=== PATIENT | female | born 1950 | race Caucasian/White ===

== ENCOUNTER → 2019-01-08 | Outpatient (CLI) | payer MEDICARE, OTHER ==
[~2019-01-08] MED LIST: ASPI-1441 PO; LOR5/325 PO
--- NOTE | 2019-01-08 12:49 | RADIOLOGY IMAGING REPORT ---
FAC[place] [facility] [place]IENT NAME: TERA JOHANSEN : [id number] MR: [id number] V: [id number] EXAM DATE: [id number] ORDERING PHYSICIAN: ZACH DAI TECHNOLOGIST: Gail Aguilar PROCEDURE:BILATERAL DIGITAL SCREENING MAMMOGRAM WITH CAD ASSISTED INTERPRETATION & 3D TOMOSYNTHESIS COMPARISON:Prior mammograms 12/28/2016 back to 08/05/2012. INDICATIONS:SCREENING Family History: None Personal History: Benign Biopsy 17 years ago FINDINGS: Scattered fibroglandular tissue. There are no mass lesions, architectural distortions, or any clustering of suspicious microcalcifications. DIAGNOSTIC CATEGORY 1--NEGATIVE. RECOMMENDATIONS: ROUTINE MAMMOGRAM AND CLINICAL EVALUATION. IMPRESSION: BIRADS 1: Negative. Dictated by: Jairo Mccormack M.D. on 01/08/2019 at 10:24 Transcribed by: STACY on 01/08/2019 at 11:15 Approved by: Jairo Mccormack M.D. on 01/08/2019 at 12:48 [facility]
== END ==
LOC: MAMO 01:29
PROVIDERS: ATTEND Physician Assistant
DX: Z12.31 Encounter for screening mammogram for malignant neoplasm of breast (principal)
CPT/HCPCS: 77063; 77067

== ENCOUNTER 2019-03-24 09:45 | Emergency (ER) | payer MEDICARE, OTHER ==
--- NOTE | 2019-03-24 09:49 | ER Report ---
History and Physical Time Seen By MD: 09:49 HPI/ROS CHIEF COMPLAINT: Right lower extremity swelling and pain HISTORY OF PRESENT ILLNESS: Patient is a 68-year-old female here with complaints of right lower extremity proximal pain status post hip replacement 1 month prior, cramping sensation in the right lower calf and leg swelling. Patient is neurovascularly intact at time of evaluation. Patient was concerned that she may have a clot prompting evaluation. Denies chest pain, shortness breath, fevers or chills. REVIEW OF SYSTEMS: Constitutional: No fever, no chills. Eyes: No discharge. ENT: No sore throat. Cardiovascular: No chest pain, no palpitations. Respiratory: No cough, no shortness of breath. Gastrointestinal: No abdominal pain, no vomiting. Genitourinary: No hematuria. Musculoskeletal: + Lower extremity proximal pain and cramping in the calf Skin: No rashes. Neurological: Neurovascular exam intact in the distal extremity Allergies: Coded Allergies: Sulfa (Sulfonamide Antibiotics) (Verified Allergy, Severe, HIVES, 03/24/19) codeine (Verified Allergy, Severe, N/V, DEHYDRATION, 03/24/19) erythromycin base (Verified Adverse Reaction, Severe, DIARRHEA, 03/24/19) Home Meds Reported Medications Oxycodone/Acetaminophen (OXYCODONE/ACETAMINOPHEN 5MG/325 MG) 5 Mg/325 Mg Tab 03/24/19 Olmesartan Medoxomil (BENICAR) 5 Mg Tablet, 10 MG PO BID 03/24/19 Aspirin (Aspirin Ec) 81 Mg Tablet.dr, 81 MG PO DAILY, 0 Refills 12/21/08 Discontinued Reported Medications Acetaminophen/Hydrocodone (Lortab 5/325 Mg) 5 Mg/325 Mg Tab, 1 - 2 EA PO Q4-6H PRN, #30 0 Refills 12/21/08 Hx Substance Use Disorder: No Hx Alcohol Use: No Constitutional Vital Sign - Last 24 Hours 03/24/19 03/24/19 03/24/19 03/24/19 09:52 10:00 10:15 10:30 Temp 99.0 Pulse 78 83 81 Resp 20 10 12 B/P (MAP) 149/90 133/75 (94) 126/58 (80) Pulse Ox 93 91 90 03/24/19 03/24/19 03/24/19 03/24/19 10:45 10:50 11:00 11:05 Pulse 65 72 70 Resp 9 37 12 B/P (MAP) 139/79 (99) Pulse Ox 91 90 91 03/24/19 03/24/19 03/24/19 03/24/19 11:30 11:35 11:50 12:00 Pulse 73 72 Resp 16 15 B/P (MAP) 128/85 (99) 129/68 (88) Pulse Ox 91 90 03/24/19 03/24/19 03/24/19 03/24/19 12:05 12:20 12:25 12:30 Pulse 67 66 69 Resp 15 13 18 B/P (MAP) 131/78 (95) Pulse Ox 89 95 93 03/24/19 03/24/19 03/24/19 03/24/19 12:40 12:55 13:00 13:10 Pulse 70 72 69 Resp 14 11 17 B/P (MAP) 137/71 (93) Pulse Ox 88 91 89 03/24/19 03/24/19 03/24/19 03/24/19 13:25 13:30 13:40 13:55 Pulse 71 65 67 Resp 13 9 13 B/P (MAP) 135/76 (95) Pulse Ox 87 89 91 03/24/19 14:00 B/P (MAP) 146/77 (100) Physical Exam General Appearance: The patient is alert, has no immediate need for airway protection and no signs of toxicity. Uncomfortable appearing Eyes: Pupils equal and round no pallor or injection. ENT, Mouth: Mucous membranes are moist. Respiratory: There are no retractions, lungs are clear to auscultation. Cardiovascular: Regular rate and rhythm. Gastrointestinal: Abdomen is soft and non tender, no masses, bowel sounds normal. Neurological: Neurovascular exam intact in the distal extremity with no occult signs of trauma Skin: Warm and dry, no rashes. Musculoskeletal: Tenderness on palpation of the proximal humerus, mild edema of the right lower extremity DIFFERENTIAL DIAGNOSIS: After history and physical exam differential diagnosis was considered for DVT, osteomyelitis, cellulitis, fracture Medical Decision Making Data Points Result Diagram: 03/24/19 1016 03/24/19 1016 Laboratory Hematology Test 03/24/19 10:16 Red Blood Count 4.33 M/uL (4.17-5.56) Mean Corpuscular Volume 93.2 fL (80.0-96.0) Mean Corpuscular Hemoglobin 30.9 pg (26.0-33.0) Mean Corpuscular Hemoglobin Concent 33.2 g/dL (32.0-36.0) Red Cell Distribution Width 13.2 % (11.5-14.5) Mean Platelet Volume 7.7 fL (7.2-11.1) Neutrophils (%) (Auto) 59.1 % (39.4-72.5) Lymphocytes (%) (Auto) 27.0 % (17.6-49.6) Monocytes (%) (Auto) 9.3 % (4.1-12.4) Eosinophils (%) (Auto) 3.9 % (0.4-6.7) Basophils (%) (Auto) 0.7 % (0.3-1.4) Nucleated RBC Relative Count (auto) 0.0 /100WBC Neutrophils # (Auto) 4.8 K/uL (2.0-7.4) Lymphocytes # (Auto) 2.2 K/uL (1.3-3.6) Monocytes # (Auto) 0.7 K/uL (0.3-1.0) Eosinophils # (Auto) 0.3 K/uL (0.0-0.5) Basophils # (Auto) 0.1 K/uL (0.0-0.1) Nucleated RBC Absolute Count (auto) 0.00 K/uL Sodium Level 139 mmol/L (137-145) Potassium Level 4.0 mmol/L (3.5-5.0) Chloride Level 107 mmol/L (98-107) Carbon Dioxide Level 25 mmol/L (22-31) Blood Urea Nitrogen 15 mg/dl (7-18) Creatinine 0.80 mg/dl (0.52-1.04) Glomerular Filtration Rate Calc > 60.0 Random Glucose 109 mg/dl (75-110) Calcium Level 9.4 mg/dl (8.4-10.2) Total Bilirubin 0.3 mg/dl (0.2-1.3) Aspartate Amino Transf (AST/SGOT) 19 U/L (0-35) Alanine Aminotransferase (ALT/SGPT) 16 U/L (0-56) Alkaline Phosphatase 79 U/L (0-126) Total Protein 6.6 g/dl (6.3-8.2) Albumin 3.9 g/dl (3.5-5.0) Chemistry Test 03/24/19 10:16 White Blood Count 8.1 k/uL (4.5-11.0) Red Blood Count 4.33 M/uL (4.17-5.56) Hemoglobin 13.4 g/dL (12.0-16.0) Hematocrit 40.4 % (34.0-47.0) Mean Corpuscular Volume 93.2 fL (80.0-96.0) Mean Corpuscular Hemoglobin 30.9 pg (26.0-33.0) Mean Corpuscular Hemoglobin Concent 33.2 g/dL (32.0-36.0) Red Cell Distribution Width 13.2 % (11.5-14.5) Platelet Count 305 K/uL (150-450) Mean Platelet Volume 7.7 fL (7.2-11.1) Neutrophils (%) (Auto) 59.1 % (39.4-72.5) Lymphocytes (%) (Auto) 27.0 % (17.6-49.6) Monocytes (%) (Auto) 9.3 % (4.1-12.4) Eosinophils (%) (Auto) 3.9 % (0.4-6.7) Basophils (%) (Auto) 0.7 % (0.3-1.4) Nucleated RBC Relative Count (auto) 0.0 /100WBC Neutrophils # (Auto) 4.8 K/uL (2.0-7.4) Lymphocytes # (Auto) 2.2 K/uL (1.3-3.6) Monocytes # (Auto) 0.7 K/uL (0.3-1.0) Eosinophils # (Auto) 0.3 K/uL (0.0-0.5) Basophils # (Auto) 0.1 K/uL (0.0-0.1) Nucleated RBC Absolute Count (auto) 0.00 K/uL Glomerular Filtration Rate Calc > 60.0 Calcium Level 9.4 mg/dl (8.4-10.2) Total Bilirubin 0.3 mg/dl (0.2-1.3) Aspartate Amino Transf (AST/SGOT) 19 U/L (0-35) Alanine Aminotransferase (ALT/SGPT) 16 U/L (0-56) Alkaline Phosphatase 79 U/L (0-126) Total Protein 6.6 g/dl (6.3-8.2) Albumin 3.9 g/dl (3.5-5.0) EKG/Imaging Imaging PATIENT NAME: Betsy Le : 1950 MR: [id number] V: [id number] EXAM DATE: ORDERING PHYSICIAN: CINDI QUIJANO TECHNOLOGIST: [place] [facility] [place]: Betsy Le : 1950 Visit/Account:[id number] Date of Sevice: 03/24/2019 EXAMINATION: CT venogram of the right lower extremity. HISTORY: One month postop. Severe pain for two days. Calf and right hip pain. COMPARISON: None. TECHNIQUE: Bolus axial scans were obtained during maximal venous opacification from the lower abdomen through the right toes. Reconstruction of the source data set includes multiplanar 2D in the sagittal and coronal planes, and 3D coronal thin slab MIP series. Surgical Services Asst images have been stored on PACS. CONTRAST: 75 mL of IV Isovue-370. One of the following dose optimization techniques was utilized in the performance of this exam: Automated exposure control; adjustment of the mA and/or kV according to the patient's size; or use of an iterative reconstruction technique. Specific details can be referenced in the facility's radiology CT exam operational policy. FINDINGS: Venographic findings: Visualized lower IVC: Negative. Other abdominal vasculature: Mild calcified plaque of the common iliac arteries.. Iliac veins: Negative. Right lower extremity: Common femoral vein: Negative. Greater saphenous vein: Negative. Femoral vein: Negative. Deep femoral vein: Negative. Popliteal vein: Negative. Deep calf veins: No evidence of thrombosis. Additional non-angiographic findings: Peripherally enhancing fluid collections in the proximal right thigh and hip region at the surgical bed with the more superficial collection within the poe bcutaneous soft tissues of the anterolateral right thigh and hip region measuring 14.2 x 4.1 x 1.8 cm and the deeper fluid collection along the anterolateral proximal thigh musculature measuring 7.5 x 4 x 1.7 cm. Diverticulosis of the sigmoid colon without evidence of diverticulitis. Advanced disc degenerative changes in the lower lumbar spine. Chronic bilateral pars defects of L5 with grade 1 anterolisthesis of L5 on S1. Status post right hip arthroplasty. The hardware appears intact. Mild osteoarthritic degenerative changes in the right knee. IMPRESSION: No evidence of deep vein thrombosis of the right lower extremity or iliac veins. Postsurgical changes of right hip arthroplasty. There are two fluid collections in the anterolateral soft tissues at the surgical bed in the proximal right thigh and hip region. These may represent postoperative seromas, however, abscess would also be a possibility. ED Course/Re-evaluation ED Course Patient is a 60-year-old female here with complaints of right lower extremity pain, swelling, calf cramping, proximal tenderness at the site of a prior hip replacement 1 month prior. Patient is neurovascularly intact and denies recent history of trauma. She does report increased edema of the entire right lower extremity. CTA of the lower extremity with runoff was completed to rule out infection, DVT. There is no evidence of venous thrombosis, 2 small fluid collections were identified in the proximal anterior thigh consistent with seromas. On reevaluation, she did have some tenderness near the site of the incision which was well-healed, nondraining with no erythema or localized edema making abscess. Unlikely. Patient's labs were also unremarkable with no leukocytosis. I recommended that the patient apply ice, take NSAIDs, wear compression stockings, elevate as needed. Recommend close follow-up with orthopedics in order to inform them about the likely development of seroma. Return precautions provided. Patient was afebrile throughout course and was neurovascularly intact in the distal extremity prior to discharge. Decision to Disposition Date: Mar 24, 2019 Decision to Disposition Time: 14:17 Depart Departure Latest Vital Signs Vital Signs Date Time Temp Pulse Resp B/P (MAP) Pulse Ox O2 Delivery O2 Flow Rate FiO2 03/24/19 14:00 146/77 (100) 03/24/19 13:55 67 13 91 03/24/19 09:52 99.0 Impression: Primary Impression: Leg pain Additional Impressions: Edema Seroma Condition: Improved Disposition: HOME OR SELF-CARE Referrals: ZACH DAI (PCP) New Scripts Tramadol Hcl (TRAMADOL HCL) 50 Mg Tablet 50 MG PO Q6H PRN for PAIN, #12 TAB 0 Refills Prov: CINDI QUIJANO DO 03/24/19 Patient Instructions: Leg Edema (ED) Additional Instructions: Please continue to take your medications as prescribed. You may substitute your Percocet for tramadol 50 mg every 8 hours as needed for breakthrough pain control. Recommend NSAID use such as Aleve or naproxen not to exceed 500 mg twice daily, ibuprofen not to be combined with Aleve not to exceed 800 mg up to 4 times a day. You may consider applying ice, elevating the extremity, using compression stockings as needed. Please contact her orthopedic doctor in order to discuss further treatment and care of a suspected seroma. Please return promptly if you develop redness, increased swelling, worsening pain, fevers. Problem Qualifiers CINDI QUIJANO DO Mar 24, 2019 09:49
[2019-03-24] MEDS ORDERED: OLME5TAB8 PO (10:05)
[2019-03-24] MEDS ORDERED: PER (10:05)
[2019-03-24 10:55] LABS: PLATELET COUNT, AUTOMATED 305 K/uL (150-450)
[2019-03-24] MEDS ORDERED: IOPAMIDOL 76% 150 ML INFUS BTL 150 ML ONE (11:26)
--- NOTE | 2019-03-24 13:55 | RADIOLOGY IMAGING REPORT ---
FACILITY: [facility] - [place] PATIENT NAME: Betsy Le : 1950 MR: [id number] V: [id number] EXAM DATE: ORDERING PHYSICIAN: CINDI QUIJANO TECHNOLOGIST: Location: [facility] Patient: Betsy Le : 1950 Visit/Account:[id number] Date of Sevice: 03/24/2019 EXAMINATION: CT venogram of the right lower extremity. HISTORY: One month postop. Severe pain for two days. Calf and right hip pain. COMPARISON: None. TECHNIQUE: Bolus axial scans were obtained during maximal venous opacification from the lower abdom en through the right toes. Reconstruction of the source data set includes multiplanar 2D in the sagit melodie and coronal planes, and 3D coronal thin slab MIP series. Brand Strategy Manager images have been stored o n PACS. CONTRAST: 75 mL of IV Isovue-370. One of the following dose optimization techniques was utilized in the performance of this exam: Autom ated exposure control; adjustment of the mA and/or kV according to the patient's size; or use of an i terative reconstruction technique. Specific details can be referenced in the facility's radiology C T exam operational policy. FINDINGS: Venographic findings: Visualized lower IVC: Negative. Other abdominal vasculature: Mild calcified plaque of the common iliac arteries.. Iliac veins: Negative. Right lower extremity: Common femoral vein: Negative. Greater saphenous vein: Negative. Femoral vein: Negative. Deep femoral vein: Negative. Popliteal vein: Negative. Deep calf veins: No evidence of thrombosis. Additional non-angiographic findings: Peripherally enhancing fluid collections in the proximal right thigh and hip region at the surgical b ed with the more superficial collection within the subcutaneous soft tissues of the anterolateral rig ht thigh and hip region measuring 14.2 x 4.1 x 1.8 cm and the deeper fluid collection along the anter olateral proximal thigh musculature measuring 7.5 x 4 x 1.7 cm. Diverticulosis of the sigmoid colon without evidence of diverticulitis. Advanced disc degenerative changes in the lower lumbar spine. C hronic bilateral pars defects of L5 with grade 1 anterolisthesis of L5 on S1. Status post right hip arthroplasty. The hardware appears intact. Mild osteoarthritic degenerative changes in the right kn ee. IMPRESSION: No evidence of deep vein thrombosis of the right lower extremity or iliac veins. Postsurgical changes of right hip arthroplasty. There are two fluid collections in the anterolateral soft tissues at the surgical bed in the proximal right thigh and hip region. These may represent po stoperative seromas, however, abscess would also be a possibility. Report Dictated By: Charles Huang MD at 03/24/2019 1:30 PM Report E-Signed By: Charles Huang MD at 03/24/2019 1:51 PM [email or web address]
[2019-03-24 14:00] VITALS: BP 146/77
[2019-03-24] MEDS ORDERED: TRAM-420 PO (14:20)
== END 2019-03-24 14:30 | disposition home or self-care (01) ==
LOC: ER 09:54
DX: S80.11XA Contusion of right lower leg, initial encounter (principal); R60.9 Edema, unspecified
CPT/HCPCS: 85025; 99284; Q9967; 82040; 82247; 82310; 82374; 82435; 82565; 82947; 84075; 84132; 84155; 84295; 84450; 84460; 84520